=== PATIENT | female | born 1955 | race African-American/Black ===

== ENCOUNTER 2019-05-11 20:30 | Emergency (ER) | payer SELFPAY ==
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
[2019-05-11 20:39] VITALS: BP 108/71; PULSE 89; TEMP 98.6; BMI 24.5
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
== END 2019-05-11 21:42 | disposition home or self-care (01) ==
LOC: JERFT 20:30
DX: S09.8XXA Other specified injuries of head, initial encounter (principal); Y04.2XXA Assault by strike against or bumped into by another person, initial encounter; Y93.89 Activity, other specified; Y92.038 Other place in apartment as the place of occurrence of the external cause; Y99.8 Other external cause status; Y07.499 Other family member, perpetrator of maltreatment and neglect; I10 Essential (primary) hypertension; F41.9 Anxiety disorder, unspecified
CPT/HCPCS: 82962; 99281-25